=== PATIENT | female | born 1975 ===

== ENCOUNTER → 2023-10-13 06:24 | Day surgery (SDC) | payer BC, SELFPAY | LOC: GI 06:24 | PROVIDERS: ATTENDING PHYSICIAN Internal Medicine Gastroenterology | DX: Z12.11 Encounter for screening for malignant neoplasm of colon (principal); C18.7 Malignant neoplasm of sigmoid colon; D12.3 Benign neoplasm of transverse colon; D12.5 Benign neoplasm of sigmoid colon; K57.30 Diverticulosis of large intestine without perforation or abscess without bleeding; K64.0 First degree hemorrhoids | CPT/HCPCS: 45385; 88305 ==

== ENCOUNTER 2023-10-16 05:53 | Day surgery (SDC) | payer BC, SELFPAY ==
[2023-10-16 08:15] VITALS: BMI 23.9
[2023-10-16 08:16] VITALS: BMI 23.9
[2023-10-16 08:17] VITALS: BP 117/83
[2023-10-16 09:45] VITALS: BP 102/68
[2023-10-16 10:00] VITALS: BP 104/60
[2023-10-16 10:15] VITALS: BP 117/64
== END 2023-10-16 10:15 | disposition home or self-care (01) ==
LOC: GI 05:53
PROVIDERS: ATTENDING PHYSICIAN Internal Medicine Gastroenterology
DX: K63.3 Ulcer of intestine (principal); K64.0 First degree hemorrhoids; C18.7 Malignant neoplasm of sigmoid colon
CPT/HCPCS: 45335; 71260; 74177; Q9967

== ENCOUNTER → 2023-11-10 07:30 | Outpatient (REF) | payer BC, SELFPAY ==
[2023-11-10 07:49] VITALS: BMI 23.6
[2023-11-10 08:52] LABS: Hematocrit 39.8 % (37.0-47.0); Hemoglobin 13.4 g/dL (12.0-16.0); Mean Corp Hgb Conc. 33.7 g/dL (33.0-37.0); Mean Corpuscular Hgb 32.4 pg (27.0-31.0); Mean Corpuscular Volume 96.1 fL (81.0-99.0); Mean Platelet Volume 10.8 fL (7.4-10.4); Platelet Count 304 10^3/uL (130-400); Red Blood Cell Count 4.14 10^6/uL (4.20-5.40); White Blood Cell Count 8.1 10^3/uL (4.8-10.8)
[2023-11-10 09:03] LABS: INR 0.98; PT 12.8 Sec (11.4-14.6)
[2023-11-10 09:04] LABS: APTT 28.9 Sec (23.4-35.0)
[2023-11-10 09:37] LABS: ALT (SGPT) 22 U/L (0-35); AST (SGOT) 30 U/L (14-36); Albumin 4.5 g/dl (3.5-5.0); Alkaline Phosphatase 57 U/L (38-126); Blood Urea Nitrogen 19 mg/dl (7-17); Calcium 9.7 mg/dl (8.4-10.2); Carbon Dioxide 30 mmol/L (22-30); Chloride 99 mmol/L (98-107); Estimated Creatinine Clearance 80 ml/min; Glucose 81 mg/dl (70-99); Potassium 4.4 mmol/L (3.5-5.1); Sodium 138 mmol/L (135-145); Total Bilirubin 0.6 mg/dl (0.2-1.3); Total Protein 6.9 g/dl (6.3-8.2); eGFR > 60.00
[2023-11-10 09:52] LABS: Glycohemoglobin (HgbA1c) 5.6 % (4.0-5.6)
[2023-11-10 10:05] LABS: CEA 0.79 ng/ml
== END ==
LOC: SDSPAT 07:30
PROVIDERS: ATTENDING PHYSICIAN Surgery; FAMILY PHYSICIAN Family Medicine
DX: C18.7 Malignant neoplasm of sigmoid colon (principal)
CPT/HCPCS: 36415; 80053; 82378; 83036; 85027; 85610; 85730; 86850; 86900; 86901; 93005

== ENCOUNTER 2024-11-24 06:26 | Day surgery (SDC) | payer BC, SELFPAY | END 2024-11-24 12:24 | disposition home or self-care (01) | LOC: GI 06:26 | PROVIDERS: ATTENDING PHYSICIAN Internal Medicine Gastroenterology | DX: Z08 Encounter for follow-up examination after completed treatment for malignant neoplasm (principal); K64.0 First degree hemorrhoids; K63.89 Other specified diseases of intestine; Z85.038 Personal history of other malignant neoplasm of large intestine; Z98.0 Intestinal bypass and anastomosis status | CPT/HCPCS: 45380; 88305; 88342 ==